=== PATIENT | male | born 1980 | race Caucasian/White ===

== ENCOUNTER 2021-04-28 15:45 | Emergency (ER) | payer SELFPAY ==
[2021-04-28 15:59] VITALS: BP 128/87; PULSE 89; TEMP 99.3; BMI 27.9
== END 2021-04-28 17:45 | disposition home or self-care (01) ==
LOC: JER 15:45
DX: R05.9 Cough, unspecified (principal); M79.10 Myalgia, unspecified site
CPT/HCPCS: 99282-25